=== PATIENT | male | born 1990 | race African-American/Black ===

== ENCOUNTER 2016-09-18 16:54 | Emergency (ER) | payer SELFPAY ==
[2016-09-18 17:40] VITALS: BP 128/82
[2016-09-18] MEDS ORDERED: Bacitracin Oint 1 GM U/D Packet TOP ONE (17:59)
--- NOTE | 2016-09-18 17:59 | EDM.PDOC ---
ED HPI GENERAL MEDICAL PROBLEM - General Chief Complaint: Laceration Stated Complaint: R FINGER LAC Time Seen by Provider: 09/18/16 17:36 Source of Information: Reports: Patient History Limitations: Reports: No Limitations - History of Present Illness INITIAL COMMENTS - FREE TEXT/NARRATIVE: The patient is a 26-year-old male who comes in with a right hand injury. He was doing some work and states that his right index finger got caught between a piece avoidance of metal and it scraped off some of the skin of his finger and cut the finger. Pain is mild at this time. Denies additional injury. Mild bleeding. No numbness or tingling. Tetanus is up-to-date. Right 2-Index finger Pain Score (Numeric/FACES): 4 - Related Data Allergies Allergy/AdvReac Type Severity Reaction Status Date / Time No Known Allergies Allergy Verified 09/18/16 17:23 Home Meds: Home Meds Bacitracin [Bacitracin Oint] 0.5 gm TOP TID #1 tube 09/18/16 [Rx] Past Medical History - Past Health History Medical/Surgical History: Denies Medical/Surgical History Social & Family History - Family History Family Medical History: Noncontributory - Tobacco Use Smoking Status *Q: Never Smoker Second Hand Smoke Exposure: No - Recreational Drug Use Recreational Drug Use: No ED ROS GENERAL - Review of Systems Review Of Systems: See Below Constitutional: Reports: No Symptoms Musculoskeletal: Reports: Hand Pain Skin: Reports: Wound Hematologic/Lymphatic: Denies: Easy Bleeding ED EXAM, SKIN/RASH Exam: See Below Exam Limited By: No Limitations General Appearance: Alert, WD/WN, No Apparent Distress Eye Exam: Bilateral Eye: Normal Inspection Throat/Mouth: Normal Voice, No Airway Compromise Head: Atraumatic, Normocephalic Neck: Normal Inspection Respiratory/Chest: No Respiratory Distress Extremities: Other (Right hand: Index finger has abrasion, some skin avulsion, and a small laceration across the palmar surface in between the PIP and DIP joints. No bleeding. Wound is clean. Most of the wound is an avulsion of just the most superficial layer of the skin. Distal motor/sensation/perfusion intact. No visible bone.) Neurological: Alert Psychiatric: Normal Affect, Normal Mood Course - Vital Signs Last Recorded V/S: Last Vital Signs Temp 36.2 C 09/18/16 17:18 Pulse 57 L 09/18/16 17:18 Resp 14 09/18/16 17:18 BP 128/82 09/18/16 17:18 Pulse Ox 100 09/18/16 17:18 - Orders/Labs/Meds Orders: Active Orders 24 hr Category Date Time Status Communication Order [RC] ASDIRECTED Care 09/18/16 18:00 Active Meds: Medications Discontinued Medications Generic Name Dose Route Start Last Admin Trade Name Slick PRN Reason Stop Dose Admin Bacitracin 1 dose 09/18/16 17:59 Bacitracin Oint 1 Gm TOP 09/18/16 18:00 ONETIME ONE Departure - Departure Time of Disposition: 18:29 Disposition: Home, Self-Care 01 Clinical Impression: Finger laceration Qualifiers: Encounter type: initial encounter Finger: index finger Damage to nail status: without damage Foreign body presence: without foreign body Laterality: right Qualified Code(s): S61.210A - Laceration without foreign body of right index finger without damage to nail, initial encounter - Discharge Information Prescriptions: Bacitracin [Bacitracin Oint] 0.5 gm TOP TID #1 tube Instructions: Laceration Care, Adult, [id number] Referrals: PCP,None [Primary Care Provider] - Forms: ED Department Discharge Additional Instructions: 1. Keep wound clean and dry 2. Leave bandage in place for 24-48 hours. Then remove bandage. Wash daily with water and gentle soap, then apply antibiotic ointment and cover wound. 3. Return to the Emergency Department if you have worsening swelling, redness, pain, or pus under the wound. - My Orders Last 24 Hours: My Active Orders 09/18/16 18:00 Communication Order [RC] ASDIRECTED - Assessment/Plan Last 24 Hours: My Active Orders 09/18/16 18:00 Communication Order [RC] ASDIRECTED
== END 2016-09-18 18:53 | disposition home or self-care (01) ==
LOC: JD.ED 16:54
DX: S61.210A Laceration without foreign body of right index finger without damage to nail, initial encounter (principal); W23.1XXA Caught, crushed, jammed, or pinched between stationary objects, initial encounter
CPT/HCPCS: 99282; 99283